=== PATIENT | female | born 1985 | race Two or more races ===

== ENCOUNTER 2018-03-01 23:35 | Emergency (ER) | payer MEDICAID, OTHER ==
[~2018-03-01] VITALS: Ht 165.1 cm; Wt 107.7 kg
[2018-03-01 23:36] VITALS: BP 146/97
[2018-03-02] MEDS ORDERED: ONDANSETRON ODT 4 MG PO ONE
[2018-03-02] MEDS ORDERED: ONDANSETRON ODT 4 MG ONE (00:01)
== END 2018-03-02 00:10 | disposition home or self-care (01) ==
LOC: ED 23:59
DX: R11.2 Nausea with vomiting, unspecified (principal); R19.7 Diarrhea, unspecified
CPT/HCPCS: 99283; Q0162